=== PATIENT | female | born 1975 | race African-American/Black ===

== ENCOUNTER → 2023-08-19 11:18 | Outpatient (REF) | payer OTHER, SELFPAY ==
[2023-08-20 15:53] LABS: Mumps Virus IgG Positive; Rubeola (Measles) IgG Positive; Varicella Zoster IgG (VZV) Positive
[2023-08-20 19:55] LABS: Hepatitis B Surface Antibody Positive
[2023-08-20 20:53] LABS: Rubella Positive
[2023-08-22 03:29] LABS: Quantiferon Mitogen minus NIL 8.62 IU/mL; Quantiferon NIL 0.02 IU/mL; Quantiferon Plus TB1 minus NIL 0.01 IU/mL (0.00-0.34); Quantiferon Plus TB2 minus NIL 0.01 IU/mL (0.00-0.34); Quantiferon TB Gold Plus Negative (Negative)
== END ==
LOC: OHS 11:18
PROVIDERS: ATTENDING PHYSICIAN Nurse Practitioner
DX: Z23 Encounter for immunization (principal)
CPT/HCPCS: 36415; 86480; 86706; 86735; 86762; 86765; 86787